=== PATIENT | female | born 1955 | race Caucasian/White ===

== ENCOUNTER 2023-04-10 13:27 | Outpatient (AMB) | payer MEDICARE, SELFPAY ==
[2023-04-10 13:30] VITALS: BP 154/82; PULSE 97; O2SAT 98; BMI 59.1
--- NOTE | 2023-04-10 13:30 | MHC.PC.OV ---
Vital Signs 04/10/23 13:30 Height 5 ft 6 in Weight 366 lb 6.532 oz BMI 59.1 BP 154/82 H Blood Pressure Location Lt brachial Position Sitting Pulse 97 Pulse Source Pulse Oximeter Pulse Oximetry (%) 98 Oxygen Delivery Method Room Air Intake Visit Reasons: SOAKER/ osteoarthritis , asthma, obesity Allergies duloxetine Adverse Reaction (Intermediate, Verified 04/10/23 13:43) stomach pain NSAIDS (Non-Steroidal Anti-Inflamma Adverse Reaction (Intermediate, Verified 04/10/23 13:43) stomach pain D-Mannose Adverse Reaction (Intermediate, Uncoded 04/10/23 13:43) stomach pain Medication List - Last Reconciled 04/10/23 by Aida Diaz Po, acetaminophen 1,000 mg PO Q6H PRN acetaminophen ER 1,300 mg PO Q12H albuterol sulfate 90 mcg/actuation (ProAir HFA) 2 puffs inhalation Q4-6H PRN albuterol sulfate 5 mg inhalation Q4H amitriptyline 100 mg PO BEDTIME calcium carbonate (Tums) 200 mg PO BID clindamycin phosphate 1% 1 appl topical BID dextromethorphan polistirex ER (Delsym 12 hour) 10 mL PO Q12H docusate sodium (Colace) 300 mg PO DAILY famotidine 20 mg PO BID fluticasone propionate 220 mcg/actuation (Flovent HFA) 2 puffs inhalation BID furosemide 40 mg PO DAILY PRN lisinopril 5 mg PO .PM oxycodone 20 mg PO Q8H PRN potassium chloride ER (Klor-Con M) 20 mEq PO DAILY sulfamethoxazole-trimethoprim 800-160 mg (Bactrim DS) 1 tab PO ONCE tetracycline 500 mg PO Q12H PRN trospium 20 mg PO BID Tobacco use date assessed: 04/10/23 Fall risk assessment: No Falls in past year Last assessed Fall Risk: 04/10/23 Dental Screening Dental Screen Date: 04/10/23 Did you have a dental visit in the last 12 months?: No Did you have a dental problem in the last 6 months where you did not have access to dental care?: No Was dental information given to patient?: No HPI SOAKER/ osteoarthritis , asthma, obesity HPI Details Old morbidly obese female with COPD GERD hypertension coming in for the 1st time. PFSH Family History (Updated 04/10/23 @ 13:46 by Radha Seals [facility]) Mother CHF (congestive heart failure) Father Diabetes CHF (congestive heart failure) Brother No problems noted. Brother No problems noted. Brother No problems noted. Daughter No problems noted. Other Mental health disorder Social History Housing: Apartment Patient Tobacco Use Status: Former Tobacco user Tobacco use type: Cigarette e-Cigarette/Vaping Use: Never Used Second Hand Smoke Exposure: No Current occupational status: disabled Cognitive needs: No Hearing needs: No Vision needs: Yes Questionnaire PHQ-9 Over the last 2 weeks, how often have you been bothered by any of the following problems? 1. Little interest or pleasure in doing things: nearly every day 2. Feeling down, depressed, or hopeless: nearly every day 3. Trouble falling or staying asleep, or sleeping too much: more than half the days 4. Feeling tired or having little energy: more than half the days 5. Poor appetite or overeating: more than half the days 6. Feeling bad about yourself - or that you are a failure or have let yourself or your family down: several days 7. Trouble concentrating on things, such as reading the newspaper or watching television: not at all 8. Moving or speaking so slowly that other people could have noticed. Or the opposite - being so fidgety or restless that you have been moving around a lot more than usual: several days 9. Thoughts that you would be better off or of hurting yourself in some way: several days Total score: 15 Depression Screening Interpretation: Positive Source: Developed by Drs. Patrice Sutherland, Mariposa Canales, Nasir Steele and colleagues, with an educational samreen from [employer]. Thrive Questionnaire Date Thrive assessed: 04/10/23 I am a: Patient What is your living situation today?: I have a steady place to live Within the past 12 months, did the food you bought not last and you didn't have the money to get more?: Never true Within the past 12 months, did you worry whether your food would run out before you got money to buy more?: Never true Do you have trouble paying for medicines?: No Do you have trouble getting transportation to medical appointments?: No Do you have trouble paying your heating and electricity bill?: No Do you have trouble taking care of your child, family member or friend?: No Do you have trouble with day-to-day activities such as bathing, preparing meals, shopping, managing finances, etc.?: No Are you currently unemployed and looking for a job?: No Are you interested in more education?: No Currently or been in a relationship where the following occur: no concerns reported AUDIT C Alcohol Use Questionnaire (AUDIT-C) 1. How often do you have a drink containing alcohol?: Never 3. How often do you have six or more drinks on one occasion?: Never Total Score: 0 EDWARD-7 AMB Questionnaire EDWARD-7 Date EDWARD - 7 assessed: 04/10/23 Feeling nervous, anxious, or on edge: 2 = More than half the days Not being able to stop or control worryin = More than half the days Worrying too much about different things: 2 = More than half the days Trouble relaxin = More than half the days Being so restless that it is hard to sit still: 1 = Several days Becoming easily annoyed or irritable: 2 = More than half the days Feeling afraid as if something awful might happen: 0 = Not at all Total EDWARD-7 score (0-4 normal; 5-9 mild; 10-14 moderate; 15-21 severe): 11 Source: Developed by Drs. Patrice Sutherland, Mariposa Canales, Nasir Steele and colleagues, with an educational samreen from [employer]. Physical exam (Primary Care) Vital Signs: Last Vital Signs Pulse 97 04/10/23 13:30 BP 154/82 H 04/10/23 13:30 Pulse Ox 98 04/10/23 13:30 Oxygen Delivery Method Room Air 04/10/23 13:30 BMI result Body Mass Index 59.1 Tobacco/Smoking Status: Tobacco use Status Tobacco use date assessed 04/10/23 04/10/23 13:49 Patient Tobacco Use Status Former Tobacco user 04/10/23 13:49 Tobacco use type Cigarette 04/10/23 13:49 e-Cigarette/Vaping Use Never Used 04/10/23 13:49 PHQ-9: PHQ-9 Score PHQ-9: Total score 15 04/10/23 13:49 Depression Screening Interpretation: Positive Thrive Assessment: Date of Thrive Assessment Date Thrive assessed 04/10/23 04/10/23 13:49 Currently or been in a relationship where the following occur: no concerns reported Const General: alert; No acute distress Eyes Conjunctivae: conjunctivae normal Resp Auscultation: clear to auscultation bilaterally Cardio Rate: regular rate Rhythm: regular rhythm GI Inspection: Yes normal to inspection Extrem General: Yes normal to inspection and No edema Assessment and Plan Assessment & Plan (1) Morbid obesity: Code(s): E66.01 - Morbid (severe) obesity due to excess calories Plan: Patient is referred to bariatric surgery (2) Hypertension: Code(s): I10 - Essential (primary) hypertension Plan: Continue with blood pressure medication. Decrease salt intake and exercise continue with lisinopril 5 mg once a day (3) COPD (chronic obstructive pulmonary disease): Code(s): J44.9 - Chronic obstructive pulmonary disease, unspecified Plan: Continue with the inhalers rinse mouth after using the Flovent (4) Hidradenitis suppurativa: Code(s): L73.2 - Hidradenitis suppurativa Plan: Patient has been prescribed antibiotic (5) Recurrent UTI: Comment: Dr. Espinoza Code(s): N39.0 - Urinary tract infection, site not specified Plan: Patient follows up with urology and has been prescribed the antibiotic (6) Urinary incontinence: Comment: Dr. espinoza Code(s): R32 - Unspecified urinary incontinence Plan: Patient follows up with urology on trospium (7) GERD (gastroesophageal reflux disease): Code(s): K21.9 - Gastro-esophageal reflux disease without esophagitis Plan: Avoid the foods that causes that usually spicy foods, tomato products, juices, coffee, soda and foods that your sensitive to. After eating do not lie down, allow 3-4 hours before in lie down. And keep the head of bed above 30 degrees to avoid the acid from going up. (8) PTSD (post-traumatic stress disorder): Code(s): F43.10 - Post-traumatic stress disorder, unspecified Plan: Continues follow-up with counseling and therapy (9) Recurrent depression: Code(s): F33.9 - Major depressive disorder, recurrent, unspecified Plan: Continue with counseling and therapy (10) Peripheral vascular disease: Code(s): I73.9 - Peripheral vascular disease, unspecified Plan: When sitting down elevate the legs, exercise, and support stockings. Discussed with with the diuretic renal function has to be monitored closely (11) Bilateral primary osteoarthritis of knee: Comment: [facility] Genicular nerve block 2021 L Code(s): M17.0 - Bilateral primary osteoarthritis of knee Plan: PAtient follow up with PAin management DR. Littlejohn. Discussed with the patient that I am limiting prescription of narcotic pain medication. Patient would like to be referred to pain management here (12) Fatty liver: Code(s): K76.0 - Fatty (change of) liver, not elsewhere classified Plan: Low-fat diet and exercise will refer to Gastroenterology (13) Cholelithiases: Code(s): K80.20 - Calculus of gallbladder without cholecystitis without obstruction Plan: Low-fat diet Orders: Referrals Gastroenterology Referral K76.0 - Fatty (change of) liver, not elsewhere classified Bariatric Surgery Referral E66.01 - Morbid (severe) obesity due to excess calories Pain Management Referral M17.0 - Bilateral primary osteoarthritis of knee Medications: New famotidine 20 mg PO BID 180 tabs 0RF 90 days M17.0 - Bilateral primary osteoarthritis of knee Coding Level of Care Code New Pt Level 4 (40470) Diagnoses Morbid obesity E66.01 Hypertension I10 COPD (chronic obstructive pulmonary disease) J44.9 Hidradenitis suppurativa L73.2 Recurrent UTI N39.0 Urinary incontinence R32 GERD (gastroesophageal reflux disease) K21.9 PTSD (post-traumatic stress disorder) F43.10 Recurrent depression F33.9 Peripheral vascular disease I73.9 Bilateral primary osteoarthritis of knee M17.0 Fatty liver K76.0 Cholelithiases K80.20
== END 2023-04-10 14:33 | disposition home or self-care (01) ==
PROVIDERS: Visit Provider Internal Medicine
DX: I10 Essential (primary) hypertension (principal); J44.9 Chronic obstructive pulmonary disease, unspecified; Z68.43 Body mass index [BMI] 50.0-59.9, adult; E66.01 Morbid (severe) obesity due to excess calories; N39.0 Urinary tract infection, site not specified; L73.2 Hidradenitis suppurativa; R32 Unspecified urinary incontinence; K21.9 Gastro-esophageal reflux disease without esophagitis; F43.10 Post-traumatic stress disorder, unspecified; F33.9 Major depressive disorder, recurrent, unspecified; I73.9 Peripheral vascular disease, unspecified; M17.0 Bilateral primary osteoarthritis of knee
CPT/HCPCS: 99204

== ENCOUNTER 2023-05-11 15:05 | Outpatient (AMB) | payer MEDICARE, SELFPAY ==
--- NOTE | 2023-05-11 15:14 | MHC.OFFVIS ---
Intake Vital Signs 05/11/23 15:22 Height 5 ft 6 in Weight 370 lb BMI 59.7 BP 151/72 H Blood Pressure Location Rt radial Position Sitting Pulse 100 Pulse Oximetry (%) 95 Oxygen Delivery Method Room Air Intake Visit Reasons: BILATERAL PRIMARY OSTEOARTHRITIS OF KNEES Intake Note: Pain today1010 Pattern Cutter Required: No Accompanied by: Spouse Allergies duloxetine Adverse Reaction (Intermediate, Verified 05/11/23 15:22) stomach pain NSAIDS (Non-Steroidal Anti-Inflamma Adverse Reaction (Intermediate, Verified 05/11/23 15:22) stomach pain D-Mannose Adverse Reaction (Intermediate, Uncoded 04/10/23 13:43) stomach pain HPI BILATERAL PRIMARY OSTEOARTHRITIS OF KNEES HPI Details Patient is a pleasant 67 years old, morbidly obese female presents today for evaluation of chronic bilateral knee pain. Patient is accompanied by her . Denies any recent or past trauma, injury or falls. She has been followed with [facility] and has received cortisone and gel injections 1.5 years ago with no pain relief and left genicular RFA over 1 year ago provided her 80% pain relief for 8 months. She has upcoming visit with [facility] on 05/26/23. Patient reports she was denied cortisone injections due to recurrent UTIs. Denies diabetes. Patient presents with localized tenderness in anterior and medial aspects of both knees, left worse than right. Due to pain, she is unable to tolerate walking or standing more than 3-4 min at the time, she uses walker with seat and at times has to utilize wheelchair. She also reports chronic low back pain and right hand pain with numbness due to arthritis. Patient cannot tolerate NSAIDs due to GI upset. Patient reports completing knee x-ray imaging at [facility], those results are not available today for review. Patient states she has been told her arthritis is bone on bone but she is not a surgical candidate for knee replacement due to morbid obesity. She has been referred to [facility] weight management program but has not made any appointment yet. Pain affects her daily activities, functioning, mobility, sleep, mood, and quality of life. Denies any fever, shortness of breath, cough, bladder or bowel incontinence, saddle anesthesia. She ambulates with walker with seat and reports bilateral lower legs weakness due to pain. Location Bilateral knee pain, low back, right hand Duration Chronic pain for many years, back and knee since 1994 Characteristics of symptom or complaint Aching, radiating, tiring, exhausting, heavy, sore, exhausting Aggravating or associated factors Walking, change in weather, climbing stairs, standing, walking Relieving factors Heating pad- slightly helps, oxycodone 20 mg TID prn Treatment PT, cortisone and gel injections, left genicular RFA [facility] Medical History Bilateral knee pain Bilateral primary osteoarthritis of knee Cholelithiases COPD (chronic obstructive pulmonary disease) Fatty liver GERD (gastroesophageal reflux disease) Hidradenitis suppurativa Hypertension Morbid obesity Peripheral vascular disease PTSD (post-traumatic stress disorder) Recurrent depression Recurrent UTI Urinary incontinence Family History Mother CHF (congestive heart failure) Father Diabetes CHF (congestive heart failure) Brother No problems noted. Brother No problems noted. Brother No problems noted. Daughter No problems noted. Other Mental health disorder Social History Housing: Apartment Patient Tobacco Use Status: Former Tobacco user Tobacco use type: Cigarette e-Cigarette/Vaping Use: Never Used Second Hand Smoke Exposure: No Current occupational status: disabled Cognitive needs: No Hearing needs: No Vision needs: Yes Review of Systems Const All systems reviewed & are unremarkable except as noted in HPI and below Neuro Denies Sensory deficit (Neuro) Physical Exam Vital Signs: Last Vital Signs Pulse 100 05/11/23 15:22 BP 151/72 H 05/11/23 15:22 Pulse Ox 95 05/11/23 15:22 Oxygen Delivery Method Room Air 05/11/23 15:22 BMI result Body Mass Index 59.7 General: Appears afebrile. Alert and oriented. Mood and affect appropriate. Follows and participates in conversation appropriately. Respiratory effort is unlabored. No cough. Able to transition from sit to stand with assistance with W/C with seat. Patient reports she also uses wheelchair with increased pain. Neuro Gait exam (Neuro): Antalgic gait present and Assistive device used Motor exam (neuro): no tremor noted and Motor abnormalities not present Sensory Exam: No Sensory deficit (Neuro) Extrem General: Yes capillary refill normal, Yes no clubbing, cyanosis or edema and Yes no calf tenderness Right upper extremity: Extremity exam: right hand (Pain with wrist flexion, lifting. Able to make closed fist. +Tinels.) Details: normal to inspection and normal capillary refill; no unusual warmth and no swelling Right lower extremity: knee (Limited ROM due to pain) Details: normal to inspection, tenderness Location: of the patella, of the medial joint line and of the lateral joint line and crepitus; no swelling, no ecchymosis and no unusual warmth Left lower extremity: knee (Limited ROM due to pain) Details: normal to inspection and tenderness Location: of the patella and of the medial joint line Results Reviewed Results Reviewed: No imaging reports are available today for review. Assessment & Plan Assessment & Plan (1) Bilateral primary osteoarthritis of knee: Comment: [facility] Genicular nerve block 2021 Left Code(s): M17.0 - Bilateral primary osteoarthritis of knee (2) Morbid obesity: Code(s): E66.01 - Morbid (severe) obesity due to excess calories (3) Bilateral knee pain: Code(s): M25.561 - Pain in right knee; M25.562 - Pain in left knee (4) Right hand pain: Code(s): M79.641 - Pain in right hand (5) Low back pain: Code(s): M54.50 - Low back pain, unspecified Plan Discuss interventional treatments for bilateral knee pain, including peripheral nerve stimulation, gel injections, and limitations of repeated genicular RFA. Previous left knee RFA provided patient 80% pain relief for 8 months over 1 year ago. She is interested in PNS trial with [facility]. In my assessment, patient and her demonstrated adequate understanding of a potential peripheral nerve stimulation device placement, maintenance and operation. Informational pamphlet provided today. Schedule Bilateral Diagnostic Saphenous nerve blocks at the adductor canal with local and US guidance. Expectations, risks and benefits were reviewed. Patient is aware she will be contacted to schedule this procedure. Will obtain records from [facility] for injections, procedures and imaging review. Encouraged daily physical activity as tolerated, continue ice/heat therapy, and weight loss which will help her low back and knee pain generators in a longer term as well as allow patient a surgical candidacy for TKA in the future. For chronic right hand pain, I will refer patient to Hand Specialist for further evaluation. All questions were answered and the patient is in agreement of plan. Follow-up after injections and sooner as needed. Orders: Referrals Hand Surgery Referral M79.641 - Pain in right hand Coding Level of Care Code New Pt Level 4 (55837) Diagnoses Bilateral primary osteoarthritis of knee M17.0 Morbid obesity E66.01 Bilateral knee pain M25.561; M25.562 Right hand pain M79.641 Low back pain M54.50
[2023-05-11 15:22] VITALS: BP 151/72; PULSE 100; O2SAT 95; BMI 59.7
== END 2023-05-11 15:43 | disposition home or self-care (01) ==
PROVIDERS: PCP Internal Medicine; Visit Provider Nurse Practitioner Family
DX: M17.0 Bilateral primary osteoarthritis of knee (principal); M54.50 Low back pain, unspecified; M79.641 Pain in right hand; E66.01 Morbid (severe) obesity due to excess calories; Z68.43 Body mass index [BMI] 50.0-59.9, adult; M25.561 Pain in right knee; M25.562 Pain in left knee
CPT/HCPCS: 99204

== ENCOUNTER → 2023-05-11 15:05 | Outpatient (BNVA) | payer MEDICARE, SELFPAY | PROVIDERS: PCP Internal Medicine; Visit Provider Nurse Practitioner Family | DX: M17.0 Bilateral primary osteoarthritis of knee (principal); M25.561 Pain in right knee; M25.562 Pain in left knee; M79.641 Pain in right hand; M54.50 Low back pain, unspecified; E66.01 Morbid (severe) obesity due to excess calories; Z68.43 Body mass index [BMI] 50.0-59.9, adult | CPT/HCPCS: 99202 ==

== ENCOUNTER 2023-06-02 10:47 | Outpatient (AMB) | payer MEDICARE, SELFPAY ==
--- NOTE | 2023-06-02 11:04 | A.OFFVIS_ITS ---
Intake Vital Signs 06/02/23 11:18 Height 5 ft 6 in Weight 370 lb BMI 59.7 BP 164/75 H Blood Pressure Location Rt brachial Position Sitting Respiration 14 Pulse 97 Pulse Source Pulse Oximeter Pulse Oximetry (%) 100 Oxygen Delivery Method Room Air Intake Visit Reasons: Left SNB at adductor canal Allergies duloxetine Adverse Reaction (Intermediate, Verified 05/11/23 15:22) stomach pain NSAIDS (Non-Steroidal Anti-Inflamma Adverse Reaction (Intermediate, Verified 05/11/23 15:22) stomach pain D-Mannose Adverse Reaction (Intermediate, Uncoded 04/10/23 13:43) stomach pain HPI Left SNB at adductor canal HPI Details 67-year-old female who presents today to the office for a left SNB at adductor canal. On ultrasound exam, the saphenous nerve was deemed to deep reach by our 80 mm needle so the plan was changed to infrapatellar saphenous nerve blocks bilaterally. Denies any recent cough, cold, infection, fever or other significant changes in medical history since last office visit. [facility] Medical History Bilateral knee pain Bilateral primary osteoarthritis of knee Cholelithiases COPD (chronic obstructive pulmonary disease) Fatty liver GERD (gastroesophageal reflux disease) Hidradenitis suppurativa Hypertension Morbid obesity Peripheral vascular disease PTSD (post-traumatic stress disorder) Recurrent depression Recurrent UTI Urinary incontinence Family History Mother CHF (congestive heart failure) Father Diabetes CHF (congestive heart failure) Brother No problems noted. Brother No problems noted. Brother No problems noted. Daughter No problems noted. Other Mental health disorder Social History Housing: Apartment Patient Tobacco Use Status: Former Tobacco user Tobacco use type: Cigarette e-Cigarette/Vaping Use: Never Used Second Hand Smoke Exposure: No Current occupational status: disabled Cognitive needs: No Hearing needs: No Vision needs: Yes Review of Systems Const All systems reviewed & are unremarkable except as noted in HPI and below Physical Exam General: Appears afebrile. Alert and oriented. Mood and affect appropriate. Follows and participates in conversation appropriately. Respiratory effort is unlabored. Able to transition from sit to stand unassisted. Ambulates with bilaterally normal heel strike and toe off. Office Procedures Nerve Block Details: Bilateral infrapatellar saphenous nerve blocks. (Left side with ultrasound guidance and right side with the manual palpation). After obtaining written consent, pre-procedure blood pressure and heart rate were stable and recorded in the nursing record. The patient was placed supine on the table. Using ultrasound, the left infrapatellar genicular artery and nerve were identified. A 21 gauge 80 mm echostim needle was advanced under sonographic guidance to the target. Aspiration was negative for heme and synovial fluid. Three cc of lidocaine 1% was injected around the left infrapatellar saphenous nerve. The needles were removed, skin cleansed and a sterile bandage was applied. For the right side, manual palpation was used and a 25 gauge needle was advanced to the infrapatellar medial tibial plateau. After negative aspiration, 2 cc of bupivacaine 0.5% was injected. The patient tolerated the procedure well and no complications were encountered. Following the procedure the patient's vital signs and knee strength were stable. The patient was discharged home in good condition with post-procedural instructions. Time Out: Immediately prior to the procedure, the following was verbally confirmed that there is a signed consent form and that the correct patient, planned procedure, site and side are consistent with documentation and that necessary equipment and/or blood products are available prior to the start of the case. Complications: none EBL: <1 cc. Note: An ultrasound image of the injection was taken for the left side and stored in the permanent record. 83240 - Saphenous (bilateral infrapatellar. (Left side with ultrasound guidance and right side with the manual palpation). ) Procedure code (CPT) selection complete Results Reviewed Results Reviewed: No imaging is available for review. Assessment & Plan Assessment & Plan (1) Bilateral knee pain: Code(s): M25.561 - Pain in right knee; M25.562 - Pain in left knee Qualifiers: Chronicity: chronic Qualified Code(s): M25.561 - Pain in right knee; M25.562 - Pain in left knee; G89.29 - Other chronic pain Plan Patient is status post bilateral infrapatellar saphenous nerve blocks; (Left side with ultrasound guidance and right side with the manual palpation). Patient tolerated procedure well and was discharged home in stable condition with discharge instructions. All questions were answered. She has previously exhausted intra-articular hyaluronic acid and cortisone injections as well as genicular nerve blocks and radiofrequency ablation. She is not a candidate for an adductor canal saphenous nerve stimulator placement due to the depth of her adductor canal. I discussed infrapatellar saphenous permanent peripheral nerve stimulator placement for bilateral knee pain. We will see how she response to today's injections and go from there. We will follow-up in two weeks via telephone or in clinic to assess response to therapy. A follow-up appointment was made during today's visit. Scribed for Dr. Woodson by Francesco Cedillo, medical billing and coding specialist, on 06/02/2023. I, Dr. Woodson, have personally reviewed and agree with the information entered by the scribe. Coding Level of Care Code Est Pt Level 3 (74560) Diagnoses Chronic pain of both knees M25.561; M25.562; G89.29 Chronicity: chronic CPT Codes Nerve Block - Nerve Block 10: 34440 - Saphenous ([id number])
[2023-06-02 11:18] VITALS: BP 164/75; PULSE 97; RESP 14; O2SAT 100; BMI 59.7
== END 2023-06-02 11:10 | disposition home or self-care (01) ==
PROVIDERS: PCP Internal Medicine; Visit Provider Internal Medicine
DX: M25.561 Pain in right knee (principal); M25.562 Pain in left knee; G89.29 Other chronic pain
CPT/HCPCS: 64450; 76942

== ENCOUNTER → 2023-06-02 10:47 | Outpatient (BNVA) | payer MEDICARE, SELFPAY | PROVIDERS: PCP Internal Medicine; Visit Provider Internal Medicine | DX: M25.561 Pain in right knee (principal); M25.562 Pain in left knee; G89.29 Other chronic pain | CPT/HCPCS: 64450 ==

== ENCOUNTER → 2023-06-05 11:56 | Outpatient (BNVA) | payer MEDICARE, SELFPAY | PROVIDERS: PCP Internal Medicine; Visit Provider Internal Medicine ==

== ENCOUNTER 2023-06-08 11:29 | Outpatient (AMB) | payer MEDICARE, SELFPAY ==
--- NOTE | 2023-06-08 11:29 | A.OFFVIS_ITS ---
Intake Vital Signs 06/08/23 11:35 Height 5 ft 6 in Weight 370 lb BMI 59.7 Intake Visit Reasons: s/p dylan SNB at adductor canal/Confirmed Allergies duloxetine Adverse Reaction (Intermediate, Verified 06/08/23 11:30) stomach pain NSAIDS (Non-Steroidal Anti-Inflamma Adverse Reaction (Intermediate, Verified 06/08/23 11:30) stomach pain D-Mannose Adverse Reaction (Intermediate, Uncoded 04/10/23 13:43) stomach pain HPI HPI Comments History of Present Illness Details Patient presents today via telehealth encounter to discuss permanent peripheral nerve stimulator placement. Patient reports had recent follow up with Dr. Woodson status post bilateral infrapatellar saphenous nerve block with good results as noted below. Patient had questions about neuromodulation. We discussed it at greater length and directed patient to [facility] [place] for more information. Patient reports she received a call from [employer] and needs to fill out paperwork prior to Behavioral evaluation. Patient also reports upcoming evaluation with Weight Management office. She is hopeful and highly motivated for weight loss journey. She is also interested in Aqua therapy and will reach out to her insurance for places that will cover it. The trialed and failed therapy has been reviewed with the patient. The risks, consequences, alternatives, and benefits of various treatment options were discussed with the patient in great detail, including conservative management, injections and procedures. Plan to proceed with the infrapatellar saphenous permanent peripheral nerve stimulator placement for bilateral knee pain secondary to morbid obesity once she passes psychology assessment. Patient has previously trialed and failed conservative management including physical therapy, radiofrequency ablation of the genicular nerves and intra-articular injections of steroids as well as hyaluronic acid supplements. PRIOR Dr. Woodson 06/05/23: 67-year-old female who presents today vi a tele-health visit for a right SNB at adductor canal. The patient reports 80% relief following the procedure. According to the patient, the last injection provided relief on the right side for two days and continues to provide relief on the left side. Past procedure: 06/02/2023: Bilateral infrapatellar saph enous nerve blocks. (Left side with ultrasound guidance and right side with the manual palpation). 80% relief. (right side for two days and the left side is ongoing) [facility] Medical History Bilateral knee pain Cholelithiases Fatty liver Bilateral primary osteoarthritis of knee Hidradenitis suppurativa Recurrent UTI Urinary incontinence GERD (gastroesophageal reflux disease) PTSD (post-traumatic stress disorder) Recurrent depression Peripheral vascular disease COPD (chronic obstructive pulmonary disease) Hypertension Morbid obesity Family History Mother CHF (congestive heart failure) Father Diabetes CHF (congestive heart failure) Brother No problems noted. Brother No problems noted. Brother No problems noted. Daughter No problems noted. Other Mental health disorder Social History Housing: Apartment Patient Tobacco Use Status: Former Tobacco user Tobacco use type: Cigarette e-Cigarette/Vaping Use: Never Used Second Hand Smoke Exposure: No Current occupational status: disabled Cognitive needs: No Hearing needs: No Vision needs: Yes Review of Systems Const All systems reviewed & are unremarkable except as noted in HPI and below ENT Reports Normal hearing present Neuro Reports Normal hearing present and Denies confusion Psych Denies confusion Physical Exam Const General: cooperative, alert and awake; No confusion Orientation/consciousness: patient oriented x3 and No confusion Resp Effort & Inspection: able to speak in complete sentences, no audible wheezes and no cough Neuro General: patient oriented x3 and No confusion Cranial nerves: Yes Normal hearing present Cognition (Neuro): normal cognition Psych Mental Status: mental status grossly normal Speech and movement: Clear speech present Affect: normal affect Attitude: cooperative Thought process: Normal thought process present Thought content: Normal thought content present and No Depressive thoughts present Insight: Good insight present (Psych) Judgement: Good judgement present (Psych) Assessment & Plan Assessment & Plan (1) Bilateral knee pain: Code(s): M25.561 - Pain in right knee; M25.562 - Pain in left knee Qualifiers: Chronicity: chronic Qualified Code(s): M25.561 - Pain in right knee; M25.562 - Pain in left knee; G89.29 - Other chronic pain (2) Low back pain: Code(s): M54.50 - Low back pain, unspecified (3) Morbid obesity: Code(s): E66.01 - Morbid (severe) obesity due to excess calories (4) Bilateral primary osteoarthritis of knee: Comment: [facility] Genicular nerve block 2021 Left Code(s): M17.0 - Bilateral primary osteoarthritis of knee Plan Patient had questions about neuromodulation. We discussed it at greater length and directed patient to [facility] [place] for more information. The trialed and failed therapy has been reviewed with the patient. The risks, consequences, alternatives, and benefits of various treatment options were discussed with the patient in great detail, including conservative management, injections and procedures. Plan to proceed with the infrapatellar saphenous permanent peripheral nerve stimulator placement for bilateral knee pain secondary to morbid obesity once she passes psychology assessment. Patient has previously trialed and failed conservative management including physical therapy, radiofrequency ablation of the genicular nerves and intra-articular injections of steroids as well as hyaluronic acid supplements. All questions and concerns have been answered and patient agreed with the plan. Follow up as needed. I hereby testify that I spent 16 minutes in conversation with this patient as well as with planning and coordinating care for this patient and organizing this note. Telehealth Telehealth Location of provider rendering services: practice address Location of patient: address on file Patient Identification confirmed using: Name, : Yes Telehealth method: voice only Patient verbally consented to treatment: Yes Patient verbally consented to billing insurance company: Yes Patient informed of any privacy concerns related to visit: Yes Minutes spent on Phone/Video with Pt.: 16 Coding Level of Care Code Tele Est Pt Level 3 (81645) Diagnoses Chronic pain of both knees M25.561; M25.562; G89.29 Chronicity: chronic Low back pain M54.50 Morbid obesity E66.01 Bilateral primary osteoarthritis of knee M17.0
[2023-06-08 11:35] VITALS: BMI 59.7
== END 2023-06-08 12:25 | disposition home or self-care (01) ==
LOC: HO.PMC 11:29
PROVIDERS: PCP Internal Medicine; Visit Provider Nurse Practitioner Family
DX: M25.561 Pain in right knee (principal); M25.562 Pain in left knee; G89.29 Other chronic pain; M54.50 Low back pain, unspecified; E66.01 Morbid (severe) obesity due to excess calories; M17.0 Bilateral primary osteoarthritis of knee
CPT/HCPCS: 99442

== ENCOUNTER → 2023-06-08 11:29 | Outpatient (BNVA) | payer MEDICARE, SELFPAY | PROVIDERS: PCP Internal Medicine; Visit Provider Nurse Practitioner Family ==

== ENCOUNTER → 2023-06-22 13:49 | Outpatient (BNVA) | payer MEDICARE, SELFPAY | PROVIDERS: PCP Internal Medicine; Visit Provider Physician Assistant Surgical ==

== ENCOUNTER 2023-07-21 12:15 | Outpatient (AMB) | payer MEDICARE, SELFPAY ==
[2023-07-21 12:35] VITALS: BP 122/72; PULSE 93; RESP 18; O2SAT 98; BMI 64.8
--- NOTE | 2023-07-21 12:35 | A.OFFPC_ITS ---
Vital Signs 07/21/23 12:35 Height 5 ft 2.5 in Weight 360 lb BMI 64.8 BP 122/72 Blood Pressure Location Lt brachial Position Sitting Respiration 18 Pulse 93 Pulse Source Pulse Oximeter Pulse Oximetry (%) 98 Oxygen Delivery Method Room Air Intake Visit Reasons: Bilateral knee osteoarthritis, hypertension Intake Note: Patient is here to follow up on B/L knee Osteoarthritis and HTN. Certified Medical Technician Assistant Required: No Accompanied by: Self / Same As Patient Allergies duloxetine Adverse Reaction (Intermediate, Verified 07/21/23 12:40) stomach pain NSAIDS (Non-Steroidal Anti-Inflamma Adverse Reaction (Intermediate, Verified 07/21/23 12:40) stomach pain D-Mannose Adverse Reaction (Intermediate, Uncoded 07/21/23 12:40) stomach pain Tobacco use date assessed: 04/10/23 HPI Bilateral knee osteoarthritis, hypertension HPI Details 67-year-old morbidly obese female with multiple medical problems hypertension, COPD GERD PTSD peripheral vascular disease osteoarthritis fatty liver cholelithiasis coming in for follow-up. Last seen in March 2023. Apparent followed up with weight management and pain management plan of infrapatellar saphenous permanent peripheral nerve stimulator placement for bilateral knee pain once she passes psychology assessment has had failed conservative management physical therapy radiofrequency ablation of the genicular nerves and intra-articular injections of steroids as well as hyaluronic acid supplements. Patient has had psychology assessment but now waiting for insurance coverage. Otherwise discussed about mammogram and colon cancer screening but would like to hold off. Asking for gynecology and referral done. Discussed about eye exams. Otherwise breathing has been doing good blood pressure is better discussed about blood work. [facility] Medical History (Updated 07/21/23 @ 12:57 by Aida Aguilar MD) PTSD (post-traumatic stress disorder) Bilateral knee pain Cholelithiases Fatty liver Bilateral primary osteoarthritis of knee Hidradenitis suppurativa Recurrent UTI Urinary incontinence GERD (gastroesophageal reflux disease) Recurrent depression Peripheral vascular disease COPD (chronic obstructive pulmonary disease) Hypertension Morbid obesity Family History Mother CHF (congestive heart failure) Father Diabetes CHF (congestive heart failure) Brother No problems noted. Brother No problems noted. Brother No problems noted. Daughter No problems noted. Other Mental health disorder Social History Housing: Apartment Patient Tobacco Use Status: Former Tobacco user Tobacco use type: Cigarette e-Cigarette/Vaping Use: Never Used Second Hand Smoke Exposure: No Current occupational status: disabled Cognitive needs: No Hearing needs: No Vision needs: Yes Questionnaire Thrive Questionnaire Date Thrive assessed: 04/10/23 EDWARD-7 AMB Questionnaire EDWARD-7 Date EDWARD - 7 assessed: 04/10/23 Source: Developed by Drs. Patrice Sutherland, Mariposa Canales, Nasir Steele and colleagues, with an educational samreen from [employer]. Physical exam (Primary Care) BMI result Body Mass Index 64.8 Tobacco/Smoking Status: Tobacco use Status Tobacco use date assessed 04/10/23 07/21/23 12:35 Patient Tobacco Use Status Former Tobacco user 07/21/23 12:35 Tobacco use type Cigarette 07/21/23 12:35 e-Cigarette/Vaping Use Never Used 07/21/23 12:35 Thrive Assessment: Date of Thrive Assessment Date Thrive assessed 04/10/23 07/21/23 12:35 Const General: alert; No acute distress Eyes Conjunctivae: conjunctivae normal Resp Auscultation: clear to auscultation bilaterally Cardio Rate: regular rate Rhythm: regular rhythm GI Inspection: Yes normal to inspection Extrem General: Yes normal to inspection and No edema Assessment and Plan Assessment & Plan (1) Morbid obesity: Code(s): E66.01 - Morbid (severe) obesity due to excess calories Plan: patient is following up with weight managment (2) Hypertension: Code(s): I10 - Essential (primary) hypertension Plan: Continue with blood pressure medication. Decrease salt intake and exercise on lisinopril 5 mg once a day (3) COPD (chronic obstructive pulmonary disease): Code(s): J44.9 - Chronic obstructive pulmonary disease, unspecified Plan: Continue with the inhaler has the Flovent also (4) GERD (gastroesophageal reflux disease): Code(s): K21.9 - Gastro-esophageal reflux disease without esophagitis Plan: Avoid the foods that causes that usually spicy foods, tomato products, juices, coffee, soda and foods that your sensitive to. After eating do not lie down, allow 3-4 hours before in lie down. And keep the head of bed above 30 degrees to avoid the acid from going up. On famotidine 20 mg twice a day (5) Bilateral primary osteoarthritis of knee: Comment: [facility] Genicular nerve block 2021 Left Code(s): M17.0 - Bilateral primary osteoarthritis of knee Plan: Patient is being followed up by pain management (6) Moderate major depression: Comment: evaluation 06/2023 Code(s): F32.1 - Major depressive disorder, single episode, moderate Plan: Continue with present medication (7) Cervical cancer screening: Code(s): Z12.4 - Encounter for screening for malignant neoplasm of cervix Plan: Referral to gynecology done Orders: Orders Comprehensive Met. Panel Today I10 - Essential (primary) hypertension Lipid Panel Today E78.00 - Pure hypercholesterolemia, unspecified, I10 - Essential (primary) hypertension Vitamin B12 and Folate Today I10 - Essential (primary) hypertension Vitamin D 25-OH Total Today I10 - Essential (primary) hypertension Magnesium Today I10 - Essential (primary) hypertension Hemoglobin A1c Today I10 - Essential (primary) hypertension UA w Microscopic Today I10 - Essential (primary) hypertension Complete Blood Count Auto Diff Today I10 - Essential (primary) hypertension Free T4 (Free Thyroxine) Today I10 - Essential (primary) hypertension Thyroid Stimulating Hormone Today I10 - Essential (primary) hypertension Referrals DESK OFFICER Referral Z12.4 - Encounter for screening for malignant neoplasm of cervix Coding Level of Care Code Est Pt Level 4 (34125) Diagnoses Morbid obesity E66.01 Hypertension I10 COPD (chronic obstructive pulmonary disease) J44.9 GERD (gastroesophageal reflux disease) K21.9 Bilateral primary osteoarthritis of knee M17.0 Moderate major depression F32.1 Cervical cancer screening Z12.4
== END 2023-07-21 13:02 | disposition home or self-care (01) ==
PROVIDERS: PCP Internal Medicine; Visit Provider Internal Medicine
DX: J44.9 Chronic obstructive pulmonary disease, unspecified (principal); E66.01 Morbid (severe) obesity due to excess calories; F32.1 Major depressive disorder, single episode, moderate; Z68.44 Body mass index [BMI] 60.0-69.9, adult; I10 Essential (primary) hypertension; K21.9 Gastro-esophageal reflux disease without esophagitis; M17.0 Bilateral primary osteoarthritis of knee
CPT/HCPCS: 99214

== ENCOUNTER 2023-08-18 08:22 | Outpatient (AMB) | payer MEDICARE, SELFPAY ==
--- NOTE | 2023-08-18 09:47 | A.OFFVIS_ITS ---
Intake VS Expanded 08/18/23 10:06 Height 5 ft 2.5 in Weight 367 lb BMI 66.0 Body Fat % 54.5 Body Fat Mass 200 Fat Free Mass 166.8 Visceral Fat Rating 28 Body Water % 32.3 Body Water Mass 118.4 Basal Metabolic Rate/Score 2,460 Intake Visit Reasons: [facility] BMI 66.1 Allergies duloxetine Adverse Reaction (Intermediate, Verified 08/18/23 09:47) stomach pain NSAIDS (Non-Steroidal Anti-Inflamma Adverse Reaction (Intermediate, Verified 08/18/23 09:47) stomach pain D-Mannose Adverse Reaction (Intermediate, Uncoded 08/18/23 09:47) stomach pain Medication List - Last Reconciled 08/18/23 by Afshin Reed MD acetaminophen 1,000 mg PO Q6H PRN acetaminophen ER 1,300 mg PO Q12H albuterol sulfate 90 mcg/actuation (ProAir HFA) 2 puffs inhalation Q4-6H PRN albuterol sulfate 5 mg inhalation Q4H amitriptyline 100 mg PO BEDTIME clindamycin phosphate 1% 1 appl topical BID docusate sodium (Colace) 300 mg PO DAILY famotidine 20 mg PO BID 90 days fluticasone propionate 220 mcg/actuation (Flovent HFA) 2 puffs inhalation BID furosemide 40 mg PO DAILY PRN lisinopril 5 mg PO .PM methenamine mandelate 1 g PO QID oxycodone 20 mg PO Q8H PRN potassium chloride ER (Klor-Con M) 20 mEq PO DAILY solifenacin 10 mg PO DAILY HPI [facility] BMI 66.1 HPI Details Start time: 9.37am, End time: 10.27am ?I spent 45 minutes speaking with the patient on the phone plus an additional 5 minutes reviewing and updating records for a total of 50 minutes HPI Comments History of Present Illness Details Previous weight loss efforts: self diets Wakes up: 8am, Sleeps: 11pm Breakfast: 9am (oatmeal, or cereal or one egg with toast) Lunch: 1.30pm (sandwich, or soup) Dinner: 6.30pm (meat with rice and vegetables) Snacks: 11am (crackers), 3pm (crackers), 8pm (crackers, fruit, ice cream) Exercise: none Fluids: Coffee: none, Herbal tea: 3 cups/day (plain), juice: none, soda: none, ETOH: none PFSH Medical History (Updated 08/18/23 @ 10:29 by Afshin Reed MD) PTSD (post-traumatic stress disorder) Bilateral knee pain Cholelithiases Fatty liver Bilateral primary osteoarthritis of knee Hidradenitis suppurativa Recurrent UTI Urinary incontinence GERD (gastroesophageal reflux disease) Recurrent depression Peripheral vascular disease COPD (chronic obstructive pulmonary disease) Hypertension Morbid obesity Family History Mother CHF (congestive heart failure) Father Diabetes CHF (congestive heart failure) Brother No problems noted. Brother No problems noted. Brother No problems noted. Daughter No problems noted. Other Mental health disorder Social History Housing: Apartment Patient Tobacco Use Status: Former Tobacco user Tobacco use type: Cigarette e-Cigarette/Vaping Use: Never Used Second Hand Smoke Exposure: No Current occupational status: disabled Cognitive needs: No Hearing needs: No Vision needs: Yes Physical Exam Vital Signs: BMI result Body Mass Index 66.0 Assessment & Plan Assessment & Plan (1) Morbid obesity: Code(s): E66.01 - Morbid (severe) obesity due to excess calories Plan: 1.? Plan for lap sleeve gastrectomy. If diaphragmatic or ventral hernias are present at time of surgery, these will be repaired laparoscopically as well. Risks and complications were discussed in detail including possible conversion to an open procedure, anastomotic leak, bleeding requiring transfusion, small bowel obstruction, , DVT and pulmonary embolism, cardiac, or pulmonary complications, as intermediate accountant complications such as anastomotic ulcer, insufficient weight loss and vitamin deficiencies. I emphasized the importance of close follow-up, adherence to instructions and good communication. 2. Nutritional counseling. Start with 2 plant-based organic ORGAIN protein (buy at [employer], [employer], [employer]) shakes (ONE scoop EACH in 8oz low fat unsweetened almond milk) at 9am-11am and 12pm-2pm, 1 protein bar (Zone Perfect protein bars, buy at [employer], ?[employer], [employer], or [employer]!) at 3pm-5pm, dinner at 6pm (12 forks of protein and 12 forks of salad/vegetables) and one more protein bar after dinner at 8pm-10pm. So you do 2 protein shakes, 2 protein bars and one meal per day. Meal to include lean meat (beef, fish, pork, turkey, chicken), or telugu yogurt, or egg whites, or beans with a salad with olive oil and fruits (berries, pears, apples, kiwi). Avoid salt, breads, potatoes, rice, pasta, desserts. 3. Each shake would be drunk slowly, like coffee in a period of 2 hours. 4. Cut each bar in 4 pieces and eat each piece in 30min ?to make each bar last 2 hours. 5. I emphasized the importance of measuring accurately the food portion and measure it when serving the food in plate 6. The meal portions include 12 full-size forks of meat and 12 full-size forks of salad. You always eat the meat portion but you can replace up to 6 forks for salad/vegetables with rice, potatoes or pasta, or a fruit ?if you like. The less you do it the better weight loss will be. 7. One full-size fork is what it can be scooped on the fork without falling aside and not what can be bit with the fork. Use regular forks like those you find in a typical restaurant. 8.? Please send me weight measurements as soon as possible and then once a week. Always include your diet and exercise plan. 9. Alternatively purchase a stationary bike, at home that can track calories. Let me know if you do so I can give you an exercise plan. 10.?Goal is to lose at least 1.5-2lbs per week 11. Goal to lose 10% of your weight before surgery, which is about 37lbs. Ultimate weight goal: 330lbs before surgery 12. Please follow the diet plan exactly without any change. If you don't like something about the plan or you feel hungry you need to communicate with me so I can help you revise the plan. You should not change the plan yourself. Orders: Orders Insulin Today E66.01 - Morbid (severe) obesity due to excess calories, F33.9 - Major depressive disorder, recurrent, unspecified, I10 - Essential (primary) hypertension, J44.9 - Chronic obstructive pulmonary disease, unspecified, K21.9 - Gastro-esophageal reflux disease without esophagitis, K76.0 - Fatty (change of) liver, not elsewhere classified, K80.20 - Calculus of gallbladder without cholecystitis without obstruction, M17.0 - Bilateral primary osteoarthritis of knee, M25.561 - Pain in right knee, M25.562 - Pain in left knee, N39.0 - Urinary tract infection, site not specified, R32 - Unspecified urinary incontinence Complete Blood Count Auto Diff Today E66.01 - Morbid (severe) obesity due to excess calories, F33.9 - Major depressive disorder, recurrent, unspecified, I10 - Essential (primary) hypertension, J44.9 - Chronic obstructive pulmonary disease, unspecified, K21.9 - Gastro-esophageal reflux disease without esophagitis, K76.0 - Fatty (change of) liver, not elsewhere classified, K80.20 - Calculus of gallbladder without cholecystitis without obstruction, M17.0 - Bilateral primary osteoarthritis of knee, M25.561 - Pain in right knee, M25.562 - Pain in left knee, N39.0 - Urinary tract infection, site not specified, R32 - Unspecified urinary incontinence IRON PROFILE Today E66.01 - Morbid (severe) obesity due to excess calories, F33.9 - Major depressive disorder, recurrent, unspecified, I10 - Essential (primary) hypertension, J44.9 - Chronic obstructive pulmonary disease, unspecified, K21.9 - Gastro-esophageal reflux disease without esophagitis, K76.0 - Fatty (change of) liver, not elsewhere classified, K80.20 - Calculus of gallbladder without cholecystitis without obstruction, M17.0 - Bilateral primary osteoarthritis of knee, M25.561 - Pain in right knee, M25.562 - Pain in left knee, N39.0 - Urinary tract infection, site not specified, R32 - Unspecified urinary incontinence Comprehensive Met. Panel Today E66.01 - Morbid (severe) obesity due to excess calories, F33.9 - Major depressive disorder, recurrent, unspecified, I10 - Essential (primary) hypertension, J44.9 - Chronic obstructive pulmonary disease, unspecified, K21.9 - Gastro-esophageal reflux disease without esophagitis, K76.0 - Fatty (change of) liver, not elsewhere classified, K80.20 - Calculus of ga llbladder without cholecystitis without obstruction, M17.0 - Bilateral primary osteoarthritis of knee, M25.561 - Pain in right knee, M25.562 - Pain in left knee, N39.0 - Urinary tract infection, site not specified, R32 - Unspecified urinary incontinence Vitamin B12 and Folate Today E66.01 - Morbid (severe) obesity due to excess calories, F33.9 - Major depressive disorder, recurrent, unspecified, I10 - Essential (primary) hypertension, J44.9 - Chronic obstructive pulmonary disease, unspecified, K21.9 - Gastro-esophageal reflux disease without esophagitis, K76.0 - Fatty (change of) liver, not elsewhere classified, K80.20 - Calculus of gallbladder without cholecystitis without obstruction, M17.0 - Bilateral primary osteoarthritis of knee, M25.561 - Pain in right knee, M25.562 - Pain in left knee, N39.0 - Urinary tract infection, site not specified, R32 - Unspecified urinary incontinence Zinc Today E66.01 - Morbid (severe) obesity due to excess calories, F33.9 - Major depressive disorder, recurrent, unspecified, I10 - Essential (primary) hypertension, J44.9 - Chronic obstructive pulmonary disease, unspecified, K21.9 - Gastro-esophageal reflux disease without esophagitis, K76.0 - Fatty (change of) liver, not elsewhere classified, K80.20 - Calculus of gallbladder without cholecystitis without obstruction, M17.0 - Bilateral primary osteoarthritis of knee, M25.561 - Pain in right knee, M25.562 - Pain in left knee, N39.0 - Urinary tract infection, site not specified, R32 - Unspecified urinary incontinence Vitamin A Today E66.01 - Morbid (severe) obesity due to excess calories, F33.9 - Major depressive disorder, recurrent, unspecified, I10 - Essential (primary) hypertension, J44.9 - Chronic obstructive pulmonary disease, unspecified, K21.9 - Gastro-esophageal reflux disease without esophagitis, K76.0 - Fatty (change of) liver, not elsewhere classified, K80.20 - Calculus of gallbladder without cholecystitis without obstruction, M17.0 - Bilateral primary osteoarthritis of knee, M25.561 - Pain in right knee, M25.562 - Pain in left knee, N39.0 - Urinary tract infection, site not specified, R32 - Unspecified urinary incontinence TSH reflex Free T4 Today E66.01 - Morbid (severe) obesity due to excess calories, F33.9 - Major depressive disorder, recurrent, unspecified, I10 - Essential (primary) hypertension, J44.9 - Chronic obstructive pulmonary disease, unspecified, K21.9 - Gastro-esophageal reflux disease without esophagitis, K76.0 - Fatty (change of) liver, not elsewhere classified, K80.20 - Calculus of gallbladder without cholecystitis without obstruction, M17.0 - Bilateral primary osteoarthritis of knee, M25.561 - Pain in right knee, M25.562 - Pain in left knee, N39.0 - Urinary tract infection, site not specified, R32 - Unspecified urinary incontinence Vitamin D 25-OH Total Today E66.01 - Morbid (severe) obesity due to excess calories, F33.9 - Major depressive disorder, recurrent, unspecified, I10 - Essential (primary) hypertension, J44.9 - Chronic obstructive pulmonary disease, unspecified, K21.9 - Gastro-esophageal reflux disease without esophagitis, K76.0 - Fatty (change of) liver, not elsewhere classified, K80.20 - Calculus of gallbladder without cholecystitis without obstruction, M17.0 - Bilateral primary osteoarthritis of knee, M25.561 - Pain in right knee, M25.562 - Pain in left knee, N39.0 - Urinary tract infection, site not specified, R32 - Unspecified urinary incontinence XR chest 2V Today E66.01 - Morbid (severe) obesity due to excess calories, F33.9 - Major depressive disorder, recurrent, unspecified, I10 - Essential (primary) hypertension, J44.9 - Chronic obstructive pulmonary disease, unspecified, K21.9 - Gastro-esophageal reflux disease without esophagitis, K76.0 - Fatty (change of) liver, not elsewhere classified, K80.20 - Calculus of gallbladder without cholecystitis without obstruction, M17.0 - Bilateral primary osteoarthritis of knee, M25.561 - Pain in right knee, M25.562 - Pain in left knee, N39.0 - Urinary tract infection, site not specified, R32 - Unspecified urinary incontinence ECG 12 lead EKG Today E66.01 - Morbid (severe) obesity due to excess calories, F33.9 - Major depressive disorder, recurrent, unspecified, I10 - Essential (primary) hypertension, J44.9 - Chronic obstructive pulmonary disease, unspecified, K21.9 - Gastro-esophageal reflux disease without esophagitis, K76.0 - Fatty (change of) liver, not elsewhere classified, K80.20 - Calculus of gallbladder without cholecystitis without obstruction, M17.0 - Bilateral primary osteoarthritis of knee, M25.561 - Pain in right knee, M25.562 - Pain in left knee, N39.0 - Urinary tract infection, site not specified, R32 - Unspecified urinary incontinence FL upper GI w air Today E66.01 - Morbid (severe) obesity due to excess calories, F33.9 - Major depressive disorder, recurrent, unspecified, I10 - Essential (primary) hypertension, J44.9 - Chronic obstructive pulmonary disease, unspecified, K21.9 - Gastro-esophageal reflux disease without esophagitis, K76.0 - Fatty (change of) liver, not elsewhere classified, K80.20 - Calculus of gallbladder without cholecystitis without obstruction, M17.0 - Bilateral primary osteoarthritis of knee, M25.561 - Pain in right knee, M25.562 - Pain in left knee, N39.0 - Urinary tract infection, site not specified, R32 - Unspecified urinary incontinence Hemoglobin A1c Today E66.01 - Morbid (severe) obesity due to excess calories, F33.9 - Major depressive disorder, recurrent, unspecified, I10 - Essential (primary) hypertension, J44.9 - Chronic obstructive pulmonary disease, unspecified, K21.9 - Gastro-esophageal reflux disease without esophagitis, K76.0 - Fatty (change of) liver, not elsewhere classified, K80.20 - Calculus of gallbladder without cholecystitis without obstruction, M17.0 - Bilateral primary osteoarthritis of knee, M25.561 - Pain in right knee, M25.562 - Pain in left knee, N39.0 - Urinary tract infection, site not specified, R32 - Unspecified urinary incontinence H Pylori Breath Test Today E66.01 - Morbid (severe) obesity due to excess calories, F33.9 - Major depressive disorder, recurrent, unspecified, I10 - Essential (primary) hypertension, J44.9 - Chronic obstructive pulmonary disease, unspecified, K21.9 - Gastro-esophageal reflux disease without esophagitis, K76.0 - Fatty (change of) liver, not elsewhere classified, K80.20 - Calculus of gallbladder without cholecystitis without obstruction, M17.0 - Bilateral primary osteoarthritis of knee, M25.561 - Pain in right knee, M25.562 - Pain in left knee, N39.0 - Urinary tract infection, site not specified, R32 - Unspecified urinary incontinence Lipid Panel Today E66.01 - Morbid (severe) obesity due to excess calories, F33.9 - Major depressive disorder, recurrent, unspecified, I10 - Essential (primary) hypertension, J44.9 - Chronic obstructive pulmonary disease, unspecified, K21.9 - Gastro-esophageal reflux disease without esophagitis, K76.0 - Fatty (change of) liver, not elsewhere classified, K80.20 - Calculus of gallbladder without cholecystitis without obstruction, M17.0 - Bilateral primary osteoarthritis of knee, M25.561 - Pain in right knee, M25.562 - Pain in left knee, N39.0 - Urinary tract infection, site not specified, R32 - Unspecified urinary incontinence C Reactive Protein Today E66.01 - Morbid (severe) obesity due to excess calories, F33.9 - Major depressive disorder, recurrent, unspecified, I10 - Essential (primary) hypertension, J44.9 - Chronic obstructive pulmonary disease, unspecified, K21.9 - Gastro-esophageal reflux disease without esophagitis, K76.0 - Fatty (change of) liver, not elsewhere classified, K80.20 - Calculus of gallbladder without cholecystitis without obstruction, M17.0 - Bilateral primary osteoarthritis of knee, M25.561 - Pain in right knee, M25.562 - Pain in left knee, N39.0 - Urinary tract infection, site not specified, R32 - Unspecified urinary incontinence Vitamin B1 Today E66.01 - Morbid (severe) obesity due to excess calories, F33.9 - Major depressive disorder, recurrent, unspecified, I10 - Essential (primary) hypertension, J44.9 - Chronic obstructive pulmonary disease, unspecified, K21.9 - Gastro-esophageal reflux disease without esophagitis, K76.0 - Fatty (change of) liver, not elsewhere classified, K80.20 - Calculus of gallbladder without cholecystitis without obstruction, M17.0 - Bilateral primary osteoarthritis of knee, M25.561 - Pain in right knee, M25.562 - Pain in left knee, N39.0 - Urinary tract infection, site not specified, R32 - Unspecified urinary incontinence Ferritin Today E66.01 - Morbid (severe) obesity due to excess calories, F33.9 - Major depressive disorder, recurrent, unspecified, I10 - Essential (primary) hypertension, J44.9 - Chronic obstructive pulmonary disease, unspecified, K21.9 - Gastro-esophageal reflux disease without esophagitis, K76.0 - Fatty (change of) liver, not elsewhere classified, K80.20 - Calculus of gallbladder without cholecystitis without obstruction, M17.0 - Bilateral primary osteoarthritis of knee, M25.561 - Pain in right knee, M25.562 - Pain in left knee, N39.0 - Urinary tract infection, site not specified, R32 - Unspecified urinary incontinence US abdomen comp w elastography Today E66.01 - Morbid (severe) obesity due to excess calories, F33.9 - Major depressive disorder, recurrent, unspecified, I10 - Essential (primary) hypertension, J44.9 - Chronic obstructive pulmonary disease, unspecified, K21.9 - Gastro-esophageal reflux disease without esophagitis, K76.0 - Fatty (change of) liver, not elsewhere classified, K80.20 - Calculus of gallbladder without cholecystitis without obstruction, M17.0 - Bilateral primary osteoarthritis of knee, M25.561 - Pain in right knee, M25.562 - Pain in left knee, N39.0 - Urinary tract infection, site not specified, R32 - Unspecified urinary incontinence Referrals Behavioral Health Referral E66.01 - Morbid (severe) obesity due to excess calories, F33.9 - Major depressive disorder, recurrent, unspecified, I10 - Essential (primary) hypertension, J44.9 - Chronic obstructive pulmonary disease, unspecified, K21.9 - Gastro-esophageal reflux disease without esophagitis, K76.0 - Fatty (change of) liver, not elsewhere classified, K80.20 - Calculus of gallbladder without cholecystitis without obstruction, M17.0 - Bilateral primary osteoarthritis of knee, M25.561 - Pain in right knee, M25.562 - Pain in left knee, N39.0 - Urinary tract infection, site not specified, R32 - Unspecified urinary incontinence Nutrition/Dietitian Referral E66.01 - Morbid (severe) obesity due to excess calories, F33.9 - Major depressive disorder, recurrent, unspecified, I10 - Essential (primary) hypertension, J44.9 - Chronic obstructive pulmonary disease, unspecified, K21.9 - Gastro-esophageal reflux disease without esophagitis, K76.0 - Fatty (change of) liver, not elsewhere classified, K80.20 - Calculus of gallbladder without cholecystitis without obstruction, M17.0 - Bilateral primary osteoarthritis of knee, M25.561 - Pain in right knee, M25.562 - Pain in left knee, N39.0 - Urinary tract infection, site not specified, R32 - Unspecified urinary incontinence Telehealth Telehealth Location of provider rendering services: practice address Location of patient: address on file Patient Identification confirmed using: Name, : Yes Telehealth method: voice only Patient verbally consented to treatment: Yes Patient verbally consented to billing insurance company: Yes Patient informed of any privacy concerns related to visit: Yes Minutes spent on Phone/Video with Pt.: 50 Coding Level of Care Code Tele [facility] Pt Level 4 (44866) Diagnoses Morbid obesity E66.01 Time Spent (min) 50
[2023-08-18 10:06] VITALS: BMI 66.0
== END 2023-08-18 10:28 | disposition home or self-care (01) ==
LOC: HO.HBS 08:22
PROVIDERS: PCP Internal Medicine; Visit Provider Surgery
DX: E66.01 Morbid (severe) obesity due to excess calories (principal); Z68.44 Body mass index [BMI] 60.0-69.9, adult
CPT/HCPCS: 99443

== ENCOUNTER → 2023-08-18 08:22 | Outpatient (BNVA) | payer MEDICARE, SELFPAY | PROVIDERS: PCP Internal Medicine; Visit Provider Surgery ==